=== PATIENT | female | born 1960 | race Caucasian/White ===

== ENCOUNTER 2017-06-08 06:43 | Emergency (ER) | payer BC ==
[~2017-06-08] VITALS: Ht 160 cm; Wt 68.0 kg
[~2017-06-08 06:43] MED LIST: ALPR-624 PO; CITA20TA11 PO; CYCL-1 PO; GABA-338 PO; HCTZ25T PO; HYDR-569 PO; MECL-111 PO; NAPR-56 PO; NORCO10T PO; OLAN2.5T3 PO; ONDA4TAB6 PO; PANT20TA2 PO
[2017-06-08 06:47] VITALS: BP 147/81
[2017-06-08] MEDS ORDERED: amoxicillin 250mg capsule PO ONE (07:10)
[2017-06-08] MEDS ORDERED: HYDROcodone/acetaminophen 5mg/325mg tablet PO ONE (07:10)
[2017-06-08] MEDS ORDERED: PANT-47 PO (07:10)
[2017-06-08] MEDS ORDERED: AMOX500C2 PO (07:10)
[2017-06-08] MEDS ORDERED: HYDR-3965 PO (07:10)
== END 2017-06-08 07:23 | disposition home or self-care (01) ==
LOC: ER 06:43
DX: K08.89 Other specified disorders of teeth and supporting structures (principal); G89.29 Other chronic pain; Z87.442 Personal history of urinary calculi; Z98.890 Other specified postprocedural states; Z90.710 Acquired absence of both cervix and uterus; Z88.6 Allergy status to analgesic agent; Z88.8 Allergy status to other drugs, medicaments and biological substances; Z79.899 Other long term (current) drug therapy
CPT/HCPCS: 99283

== ENCOUNTER 2017-10-01 16:35 | Emergency (ER) | payer BC ==
[~2017-10-01] VITALS: Ht 160 cm; Wt 64.0 kg
[~2017-10-01 16:35] MED LIST changes: +CITA-278 PO; -CITA20TA11 PO; +PANT-47 PO
[2017-10-01] MEDS: LIDOcaine 1.5% w/epinephrine 1:200,000 5ml ampul IJ ONE ×2 (17:45→19:05)
[2017-10-01] MEDS ORDERED: acetaminophen 325mg tablet PO ONE ×2 (18:25→18:35)
[2017-10-01 18:34] VITALS: BP 143/74
== END 2017-10-01 20:11 | disposition home or self-care (01) ==
LOC: ER 16:36
DX: S01.01XA Laceration without foreign body of scalp, initial encounter (principal); E78.00 Pure hypercholesterolemia, unspecified; G89.29 Other chronic pain; Z87.442 Personal history of urinary calculi; Z90.710 Acquired absence of both cervix and uterus; Z98.890 Other specified postprocedural states; Z88.6 Allergy status to analgesic agent; Z88.8 Allergy status to other drugs, medicaments and biological substances; Z79.899 Other long term (current) drug therapy; W10.8XXA Fall (on) (from) other stairs and steps, initial encounter; Y93.89 Activity, other specified; Y92.89 Other specified places as the place of occurrence of the external cause; Y99.8 Other external cause status
CPT/HCPCS: 12002; 70450; 72125; 99284; A6449; A6446; J3490